=== PATIENT | male | born 1935 | race Caucasian/White ===

== ENCOUNTER 2022-06-18 05:40 | Inpatient (IN) | payer OTHER ==
[2022-06-12 11:42] LABS: BASOPHILS % (AUTO) 0.5 % (0-1); EOSINOPHILS # (AUTO) 0.2 X10'3 (0-0.9); EOSINOPHILS % (AUTO) 2.9 % (0-6); LYMPHOCYTES # (AUTO) 1.2 X10'3 (1.1-4.8); MEAN CORPUSCULAR HEMOGLOBIN 32.7 PG (27.0-31.0); MEAN CORPUSCULAR HGB CONC 33.2 g/dL (33.0-36.5); MEAN CORPUSCULAR VOLUME 98.5 FL (78-98); MEAN PLATELET VOLUME 9.1 FL (7.4-10.4); MONOCYTES # (AUTO) 0.6 X10'3 (0-0.9); MONOCYTES % (AUTO) 11.2 % (2-12); NEUTROPHILS # (AUTO) 3.6 X10'3 (1.8-7.7); NEUTROPHILS % (AUTO) 64.4 % (42-75); PRE OP HEMATOCRIT 44.2 % (42.0-52.0); PRE OP HEMOGLOBIN 14.7 g/dL (14.0-17.9); PRE OP PLATELET COUNT 205 X10'3 (140-440); RED BLOOD COUNT 4.48 X10'6 (4.70-6.10)
[2022-06-12 11:55] LABS: ALBUMIN 3.7 G/DL (3.4-5.0); ALBUMIN/GLOBULIN RATIO 1.1 (1.1-1.5); ALKALINE PHOSPHATASE 74 IU/L (46-116); BLOOD UREA NITROGEN 23 MG/DL (7-18); BUN/CREATININE RATIO 21.1 (5.4-32.0); CALCIUM 8.9 MG/DL (8.5-10.1); CHLORIDE 107 MMOL/L (99-107); CREATININE 1.09 MG/DL (0.60-1.10); PRE OP ALT 22 U/L (30-65); PRE OP ANION GAP 6 (8-16); PRE OP AST 14 U/L (10-37); PRE OP BILIRUB, TOTAL 0.4 MG/DL (0.0-1.0); PRE OP GLUCOSE 106 MG/DL (70-104); PRE OP POTASSIUM 4.5 MMOL/L (3.4-5.1); PRE OP SODIUM 140 MMOL/L (135-145); TOTAL CARBON DIOXIDE 26.7 MMOL/L (24-32); eGFR 64 ML/MIN
[2022-06-18] VITALS (21 sets, daily range): BP systolic 92–150; BP diastolic 58–94
[~2022-06-18] VITALS: Ht 180.3 cm; Wt 86.5 kg
[~2022-06-18 05:40] MED LIST: ACET-1025 PO; ASPI-611 PO; ATOR40TA71 PO; LISI10TA27 PO; OMEP20CA16 PO; famotidine 20mg tablet PO ONE; ringers solution, lacted 1,000 ML IV SCH
--- NOTE | 2022-06-18 06:30 | NUR ---
PT HAS PULSES IN BLE, CSM INTACT, ABLE TO DO SHOWERS DIRECTED-OINTMENT NOT ORDERED, REVIEWED RESOURCES FOR SURGERY
[2022-06-18] MEDS ORDERED: VANCOMYCIN 1,500MG inj. 1,500 MG in normal saline 500ml IV soln 300 ML IV ONE (06:50)
[2022-06-18] MEDS ORDERED: VANCOMYCIN 1,500MG inj. 1,500 MG in normal saline 500ml IV soln 300 ML IV SCH ×2 (07:00→20:00)
[2022-06-18] MEDS ORDERED: ondansetron/PF 4mg/2ml inj IV PRN ×2 (07:05→09:45)
[2022-06-18] MEDS ORDERED: HYDROmorphone inj. 0.5 MG/0.5 ML DISP.SYRIN IV PRN (07:05)
[2022-06-18] MEDS ORDERED: magnesium hydroxide 30ml (MOM) UD suspension PO PRN (07:05)
[2022-06-18] MEDS ORDERED: HYDROcodone/acetaminophen 10/325mg tab PO PRN ×2 (07:05)
[2022-06-18] MEDS ORDERED: acetaminophen 325mg tablet PO PRN (07:05)
[2022-06-18] MEDS ORDERED: HYDROmorphone 1 mg/ml syringe IV PRN (07:05)
[2022-06-18] MEDS ORDERED: diphenhydrAMINE 25mg capsule PO PRN ×2 (07:05)
[2022-06-18] MEDS ORDERED: naloxone 0.4 mg/ml inj IV PRN (07:05)
[2022-06-18] MEDS ORDERED: bisacodyl 10mg suppository rectal RC PRN (07:05)
[2022-06-18] MEDS ORDERED: tranexamic acid inj. 1,000 MG in normal saline 100ml IV soln 90 ML IV ONE (07:15)
[2022-06-18] MEDS ORDERED: cloNIDine hcl/PF 100mcg/ml inj ONE (07:23)
[2022-06-18] MEDS ORDERED: ketorolac trometh. 30mg/ml inj. ONE (07:23)
[2022-06-18] MEDS ORDERED: vancomycin 1,000mg inj ONE (07:23)
[2022-06-18] MEDS ORDERED: epiNEPHrine 1 mg/ml inj ONE (07:23)
[2022-06-18] MEDS ORDERED: ROPIVAcaine 0.5% (5mg/ml) 30ml vial ONE (07:24)
[2022-06-18] MEDS ORDERED: tranexamic acid 100mg/ml inj. ONE (08:22)
[2022-06-18] MEDS ORDERED: cefazolin/dext.iso 2gm/100ml BAG IV ONE (08:22)
[2022-06-18] MEDS ORDERED: BUPIVAcaine/dex-water/PF 7.5 mg/ml 2ml ampul ONE (08:22)
[2022-06-18] MEDS ORDERED: fentaNYL/PF 50MCG/1 ML 2ML syringe ONE (08:30)
[2022-06-18] MEDS ORDERED: propofol inj 20 ML IV ONE ×2 (08:51)
[2022-06-18] MEDS ORDERED: midazolam 1 mg/ML 2ml injection ONE (08:51)
[2022-06-18] MEDS ORDERED: ringers solution, lacted 1,000 ML IV SCH (09:45)
[2022-06-18] MEDS ORDERED: labetalol 20mg/4ml (5mg/ml) syringe IV PRN (09:45)
[2022-06-18] MEDS ORDERED: hydrALAZINE 20mg/ml inj. IV PRN (09:45)
[2022-06-18] MEDS ORDERED: morphine 4 MG/ML inj SYRINge IV PRN (09:45)
[2022-06-18] MEDS ORDERED: morphine 2 MG/ML inj. syringe IV PRN (09:45)
[2022-06-18] MEDS ORDERED: proCHLORperazine 10 MG/2 ml inj IV PRN (09:45)
[2022-06-18] MEDS ORDERED: acetaminophen 1,000mg/100ml IV 100 ML IV PRN (09:45)
[2022-06-18] MEDS ORDERED: ROPIVAcaine 0.2%/PF PUMP/bolus 545 ML ADDCANAL SCH (09:45)
[2022-06-18] MEDS ORDERED: meperidine/PF 25mg/ml syringe IV PRN ×3 (09:45)
[2022-06-18] MEDS ORDERED: ROPIVAcaine 0.2% (10 MG/5 ML) BOLUS INJECTION ADDCANAL PRN (09:45)
--- NOTE | 2022-06-18 10:34 | NUR ---
Received from OR via , accompanied by Anesthesiologist RANDAL AND OR NURSE and report given by Anesthesiolgist. PT IS AWAKE AND ALERT AND DENIES PAIN OR DISCOMFORT. PT HAS JESUS DRESSING TO RT KNEE WITH PWDR PACK SLING AND PWDR PACK. PT HAS ONQ CATH. DRESSING CDI. PT HAS A 20G TO LOWER LT ARM. VSS Addendum: 06/18/22 at 1234 by Josselyn Capellan RN Amended: Links added.
--- NOTE | 2022-06-18 12:14 | NUR ---
PATIENT TAKEN TO ROOM WITH ALL BELONGINGS AND HOOKED UP TO MONITORS IN ROOM AND GIVEN CALL LIGHT, REPORT GIVEN TO RN WHO HAS TAKEN OVER PATIENT CARE. Addendum: 06/18/22 at 1235 by Josselyn Capellan RN Amended: Links added.
--- NOTE | 2022-06-18 12:20 | NUR ---
Received report from Nery in Post-op. patient arrived on floor and settled in room, Post -op vital signs started, patient orientated to room and educated how to use call light.
[2022-06-18] MEDS: potassium cl 20mEq in 1/2 NS 1,000 ML IV SCH ×3 (13:18→20:11)
[2022-06-18] MEDS ORDERED: NORMAL SALINE IV ONE (15:00)
[2022-06-18] MEDS ORDERED: TRANEXAMIC ACID IV ONE (15:00)
--- NOTE | 2022-06-18 18:30 | NUR ---
Problems reprioritized. Patient report given, questions answered & plan of care reviewed with Darline LEWIS.
--- NOTE | 2022-06-18 18:39 | NUR ---
Report received from Wilma LEWIS.
[2022-06-18] MEDS: ascorbic acid 500mg tablet PO SCH (20:00)
[2022-06-18] MEDS: gabapentin 300mg capsule PO SCH (21:00)
[2022-06-18] MEDS ORDERED: sennosides 8.6mg tablet PO SCH (21:00)
[2022-06-18] MEDS ORDERED: atorvastatin 20mg tablet PO SCH (21:00)
[2022-06-19 03:00] VITALS: BP 140/83
[2022-06-19 06:00] VITALS: BP 132/64
--- NOTE | 2022-06-19 06:15 | NUR ---
Patient in room BILL 357. I have received report from Darline LEWIS and had the opportunity to ask questions and assume patient care.
--- NOTE | 2022-06-19 06:24 | NUR ---
Report to Adriana LEWIS.
[2022-06-19 06:51] LABS: BASOPHILS % (AUTO) 0.4 % (0-1); EOSINOPHILS # (AUTO) 0.1 X10'3 (0-0.9); EOSINOPHILS % (AUTO) 1.1 % (0-6); HEMATOCRIT 36.6 % (42.0-52.0); HEMOGLOBIN 12.4 g/dl (14.0-17.9); LYMPHOCYTES # (AUTO) 1.1 X10'3 (1.1-4.8); LYMPHOCYTES % (AUTO) 11.8 % (21-51); MEAN CORPUSCULAR HEMOGLOBIN 33.4 PG (27.0-31.0); MEAN PLATELET VOLUME 9.3 FL (7.4-10.4); MONOCYTES # (AUTO) 0.9 X10'3 (0-0.9); NEUTROPHILS # (AUTO) 7.3 X10'3 (1.8-7.7); NEUTROPHILS % (AUTO) 76.7 % (42-75); PLATELET COUNT 156 X10'3 (140-440); RED BLOOD COUNT 3.73 X10'6 (4.70-6.10); RED CELL DISTRIBUTION WIDTH 12.6 % (11.5-14.5); WHITE BLOOD COUNT 9.5 X10'3 (4.5-11.0)
[2022-06-19 07:09] LABS: ANION GAP 7 (8-16); CHLORIDE 105 MMOL/L (99-107); POTASSIUM 4.3 MMOL/L (3.5-5.1); SODIUM 136 MMOL/L (135-145); TOTAL CARBON DIOXIDE 23.7 MMOL/L (24-32)
[2022-06-19] MEDS ORDERED: lisinopril 10 MG tablet PO SCH (08:00)
[2022-06-19] MEDS ORDERED: multivitamins, therapeutics tablet PO SCH (08:00)
[2022-06-19] MEDS ORDERED: pantoprazole 40mg Tablet.DR PO SCH (08:00)
[2022-06-19] MEDS: gabapentin 300mg capsule PO SCH (08:21)
[2022-06-19] MEDS: ascorbic acid 500mg tablet PO SCH (08:22)
[2022-06-19] MEDS ORDERED: aspirin 325mg tablet PO SCH (08:30)
--- NOTE | 2022-06-19 10:54 | NUR ---
Joint surgery consult: Pt s/p R knee surgery this admit per EMR. Pt seen by SHERRILL for written/verbal high protein diet ed w/ RD contact information provided; pt [place] needs to read lips in addition to elevated talking volume. SHERRILL encouraged pt to contact dietitian's office if further nutrition questions/concerns. Addendum: 06/19/22 at [address] Amended: Links added.
[2022-06-19 11:00] VITALS: BP 133/81
--- NOTE | 2022-06-19 11:30 | NUR ---
Patient was discharged today. Instructions given to patient and spouse. Patient was assisted getting dressed. All patient belongings gathered. IV removed. Patient was alert and appropriate for discharge. Patient wheeled downstairs and assisted into private vehicle with spouse.
[2022-06-19] MEDS ORDERED: celeCOXIB 100mg capsule PO SCH (20:00)
== END 2022-06-19 11:35 | disposition home or self-care (01) | DRG 470 ==
LOC: PAS 05:40 → SUR 3N 07:07 → PAS 07:30 → SUR 3N 07:40
PROVIDERS: ADMIT Orthopaedic Surgery; ATTEND Orthopaedic Surgery
PROC: 0SRC0J9 Replacement of Right Knee Joint with Synthetic Substitute, Cemented, Open Approach (ICD-10-PCS; principal; 2022-06-18 08:22)
DX: M17.11 Unilateral primary osteoarthritis, right knee (principal); Z79.82 Long term (current) use of aspirin; Z87.891 Personal history of nicotine dependence; Z79.899 Other long term (current) drug therapy
CPT/HCPCS: 36415; 73560; 80051; 80053; 82948; 85025; 86885; 86900; 86901; 87081; 93005; 97110; 97161; 97530; A4215; A6449; A7000; C1713; C1776; G0378; J0171; J0690; J0735; J1885; J2250; J2704; J2795; J3010; J3370; J3480; J3490; J7040; J7060; J7120